=== PATIENT | female | born 1980 | race Caucasian/White ===

== ENCOUNTER → 2017-04-02 | Outpatient (CLI) | payer BC ==
--- NOTE | 2017-04-02 12:30 | KCIC ---
LUMBAR SPINE MIN 4V History: Low back pain worse on the right for 5 to 6 months Comparison: None. Findings: 5 views of lumbar spine are submitted. There has been cholecystectomy. There is very minimal superior lumbar dextroscoliosis. Lumbar vertebral body stature and AP alignment are preserved. Intervertebral disc spaces are adequate. No acute osseous abnormality is identified. Calcification in the left pelvis is more likely due to phlebolith. Impression: 1. Other than very mild superior lumbar dextroscoliosis, no significant abnormality is identified. Electronically signed by: Bobby New MD (04/02/2017 12:27 PM) [id number]
--- NOTE | 2017-04-02 12:34 | KCIC ---
PELVIS History: Pelvic pain for 5 to 6 months Comparison: None. Findings: AP view of the pelvis is submitted. Femoral head morphology is preserved bilaterally. Hip joint spaces are adequate. Sacroiliac joints are symmetric in appearance. No acute osseous abnormality is identified by radiographs. Calcification in the left pelvis is more likely due to phlebolith. Impression: 1. No acute osseous abnormality is identified Electronically signed by: Bobby New MD (04/02/2017 12:30 PM) [id number]
== END | disposition home or self-care (01) ==
LOC: KCIC 11:36
PROVIDERS: ATTEND Internal Medicine Rheumatology
DX: M54.5 Low back pain (principal); R10.2 Pelvic and perineal pain
CPT/HCPCS: 72110; 72170